=== PATIENT | male | born 1975 | race Caucasian/White ===

== ENCOUNTER 2017-02-09 09:12 | Day surgery (SDC) | payer OTHER ==
[2017-02-05 15:34] VITALS: BMI 28.4
[~2017-02-09 09:12] MED LIST: LIDOCAINE 1% 20 ML VIAL (10MG/ML) FOR IV START INTRADERMA PRN
[2017-02-09 10:18] VITALS: RESP 18; TEMP 98
[2017-02-09 10:28] LABS: Glucose,Whole Blood 96 mg/dL (75-99)
[2017-02-09] MEDS: LACTATED RINGERS 1,000 ML IV SCH ×2 (10:28→10:52)
[2017-02-09] MEDS ORDERED: LIDOCAINE 1% INJ 10MG/ML (20 ML MDV) ONE (10:57)
[2017-02-09] MEDS ORDERED: GLYCOPYRROLATE 0.2 MG/ML 2 ML VIAL ONE (10:57)
[2017-02-09] MEDS ORDERED: PROPOFOL 10 MG/ML 20 ML VIAL IV ONE (10:57)
--- NOTE | 2017-02-09 11:27 | P.PCN ---
Date of Procedure: 02/09/17 Procedure(s) Performed: Procedure: Total colonoscopy. Preoperative diagnosis: Screening for neoplasia, patient has history of polyps. Postoperative diagnosis: Examination within normal limits. Brief clinical history: The patient is a 41-year-old male who is referred for this evaluation for screening for neoplasia age being his risk factor. The patient apparently had a prior exam more than 10 years ago and he recalls he had polyps removed. He has no significant GI complaints, bleeding or anemia. No family history of colon cancer. Procedure: With the patient on his left lateral decubitus position and after informed consent and adequate sedation, the perianal area was inspected and it did not show any fissures or fistulas. There were no masses felt on digital rectal examination. The Olympus CFQ 160L video colonoscope was then inserted in the rectum in the usual fashion and advanced to the cecum. The mucosa appeared healthy. No polyps or tumors were seen or any obvious diverticular disease or other pathology. The patient tolerated the procedure well. Plan: The patient was reassured. He will follow up with you as planned and I recommended repeat exam in 5 years.
[2017-02-09 11:46] VITALS: BP 119/74; PULSE 57
== END 2017-02-09 12:24 | disposition home or self-care (01) ==
LOC: ORWHC2ENDO 09:12
DX: Z12.11 Encounter for screening for malignant neoplasm of colon (principal); Z86.010 Personal history of colon polyps; Z91.018 Allergy to other foods
CPT/HCPCS: J2001; J2704; G0105

== ENCOUNTER → 2017-10-01 | Outpatient (CLI) | payer OTHER ==
--- NOTE | 2017-10-01 14:56 | XR ---
EXAMINATION TYPE: XR chest 2V DATE OF EXAM: 10/01/2017 COMPARISON: NONE TECHNIQUE: PA and lateral views submitted. HISTORY: Lymph node enlargement FINDINGS: The lungs are clear and there is no pneumothorax, pleural effusion, or focal pneumonia. No overt fa ilure. IMPRESSION: 1. No acute process.
== END | disposition home or self-care (01) ==
LOC: RADXRMAIN 14:35
PROVIDERS: ATTEND Physician Assistant
DX: R59.0 Localized enlarged lymph nodes (principal)
CPT/HCPCS: 71020

== ENCOUNTER → 2020-08-24 | Outpatient (CLI) | payer OTHER | END | disposition home or self-care (01) | LOC: LABWHC1 15:32 | PROVIDERS: ATTEND Nurse Practitioner | DX: Z20.828 Contact with and (suspected) exposure to other viral communicable diseases (principal) | CPT/HCPCS: U0003; C9803 ==

== ENCOUNTER → 2022-01-06 | Outpatient (CLI) | payer BC ==
--- NOTE | 2022-01-06 08:07 | US ---
EXAMINATION TYPE: US abdomen limited DATE OF EXAM: 01/06/2022 COMPARISON: NONE CLINICAL HISTORY: 46-year-old male R10.11 RUQ PAIN. TECHNIQUE: Multiple sonographic images of the right upper quadrant are obtained. FINDINGS: EXAM MEASUREMENTS: Liver Length: 14.5 cm Gallbladder Wall: 0.3 cm CBD: 0.6 cm Right Kidney: 11.2 x 4.8 x 5.7 cm Pancreas: Obscured by bowel gas Liver: Mildly increased echogenicity. No focal lesion seen. Gallbladder: No stones seen. No abnormal distention, wall thickening, or surrounding fluid. Evidence for sonographic Estevez's sign: No CBD: Borderline caliber. Right Kidney: No hydronephrosis or masses seen IMPRESSION: 1. Mild hepatic steatosis. 2. Borderline caliber to the bile duct at 6 mm. This may be chronic for the patient. Correlate with a lkaline phosphatase and bilirubin levels to exclude early biliary obstruction.
== END | disposition home or self-care (01) ==
LOC: RADUSWWP 07:20
PROVIDERS: ATTEND Family Medicine
DX: K76.0 Fatty (change of) liver, not elsewhere classified (principal); R10.11 Right upper quadrant pain
CPT/HCPCS: 76705

== ENCOUNTER 2022-02-10 08:07 | Day surgery (SDC) | payer BC ==
[2022-02-06 15:26] VITALS: BMI 31.3
--- NOTE | 2022-02-10 00:28 | P.GSHP ---
History of Present Illness H&P Date: 02/10/22 CHIEF COMPLAINT: Colon screen HISTORY OF PRESENT ILLNESS: The patient is a 46-year-old male who presents for colon screen. Lower endoscopy was offered for further evaluation and management. PAST MEDICAL HISTORY: Please see list. PAST SURGICAL HISTORY: Please see list. MEDICATIONS: Please see list. ALLERGIES: Please see list. SOCIAL HISTORY: No illicit drug use FAMILY HISTORY: No reports of Crohn disease or ulcerative colitis. REVIEW OF ORGAN SYSTEMS: CONSTITUTIONAL: No reports of fevers or chills. PHYSICAL EXAM: VITAL SIGNS: Stable GENERAL: Well-developed pleasant in no acute distress. HEENT: No scleral icterus. Extraocular movements grossly intact. Moist buccal mucosa. NECK: Supple without lymphadenopathy. CHEST: Unlabored respirations. Equal bilateral excursions. CARDIOVASCULAR: Regular rate and rhythm. Distal 2+ pulses. ABDOMEN: Soft, nontender, nondistended. MUSCULOSKELETAL: No clubbing, cyanosis, or edema. ASSESSMENT: 1. Colon screen. PLAN: 1. Recommend proceeding with a lower endoscopy Past Medical History Additional Past Medical History / Comment(s): hx of colon polyps. GALLBLADDER ISSUES History of Any Multi-Drug Resistant Organisms: None Reported Additional Past Surgical History / Comment(s): colonoscopies in past Past Anesthesia/Blood Transfusion Reactions: No Reported Reaction Smoking Status: Former smoker - Past Family History Mother Family Medical History: No Reported History Medications and Allergies Home Medications Medication Instructions Recorded Confirmed Type No Known Home Medications 02/05/17 02/06/22 History Allergies Allergy/AdvReac Type Severity Reaction Status Date / Time barley Allergy Abdominal Verified 02/06/22 15:18 Pain corn syrup Allergy Abdominal Verified 02/06/22 15:18 Pain
[~2022-02-10 08:07] MED LIST changes: +LACTATED RINGERS 1,000 ML IV SCH; +LIDOCAINE 1% (10MG/ML) FOR IV START INTRADERMA PRN; -LIDOCAINE 1% 20 ML VIAL (10MG/ML) FOR IV START INTRADERMA PRN
[2022-02-10 08:40] VITALS: TEMP 97.2
[2022-02-10] MEDS ORDERED: PROPOFOL 10 MG/ML 20 ML VIAL IV ONE (09:24)
--- NOTE | 2022-02-10 09:44 | P.PCN ---
Date of Procedure: 02/10/22 Description of Procedure: PREOPERATIVE DIAGNOSIS: Personal history of colon polyps POSTOPERATIVE DIAGNOSIS: Tubular adenoma transverse colon Scattered diverticulosis Colitis, ascending colon Internal hemorrhoids, grade 2 OPERATION: Colonoscopy to the ileocecal valve and appendiceal orifice, cecum Colonoscopy with hot snare polypectomy Colonoscopy with cold forceps biopsy SURGEON: Paige Slater MD. ANESTHESIA: MAC. INDICATIONS: The patient is an 46-year-old male who presents personal history of colon polyps. Last colonoscopy 5 years. Benefits and risks were described and informed consent was obtained. DESCRIPTION OF PROCEDURE: The patient had undergone Sutab prep. The patient had been brought into the operating room and laid in the left lateral decubitus position. After adequate intravenous sedation, the rectum was examined with 2% lidocaine jelly. The prostate was unremarkable. External hemorrhoids were encountered. The rectal tone was within normal limits. No lesions were palpated in the rectal vault. An Olympus colonoscope was advanced until the cecum, ileocecal valve and ap pendiceal orifice were clearly viewed. The prep was good. Sigmoid diverticulosis was encountered. Colonic polyps were found and removed. No evidence of focal colitis was found. Retroflexion of the scope demonstrated grade 2 internal hemorrhoids without active bleeding or inflammation. The colon was desufflated. The patient had tolerated the procedure well. Withdrawal time was over 6 minutes. FINDINGS: Aronchick preparation quality scale 2 (1-5) Internal hemorrhoids, grade 2 External hemorrhoids, grade 2. No arteriovenous malformations. Sigmoid diverticulosis Focal colitis at ascending colon 2 cm with cold forceps biopsy Removal of 2 polyps: - Snare polypectomy mid transverse colon 5 mm tubulovillous adenoma polyp. RECOMMENDATIONS: Repeat colonoscopy in 3 years2024 Plan - Discharge Summary Discharge Rx Participant: No New Discharge Prescriptions: No Action No Known Home Medications Discharge Medication List No Known Home Medications 02/05/17 [History] Follow up Appointment(s)/Referral(s): Paige Slater MD [STAFF PHYSICIAN] - As Needed Patient Instructions/Handouts: Colorectal Polyps (GEN), Diverticulosis Diet (GEN), Diverticulosis (ED), Colitis (ED) Activity/Diet/Wound Care/Special Instructions: Repeat colonoscopy 3 years, 2024 Discharge Disposition: HOME SELF-CARE
[2022-02-10 09:45] VITALS: BP 121/84
[2022-02-10 10:00] VITALS: PULSE 70; RESP 17
== END 2022-02-10 10:21 | disposition home or self-care (01) ==
LOC: ORWHC2ENDO 08:07
PROVIDERS: ATTEND Surgery Plastic and Reconstructive Surgery
DX: K57.90 Diverticulosis of intestine, part unspecified, without perforation or abscess without bleeding (principal); D12.3 Benign neoplasm of transverse colon; K64.8 Other hemorrhoids; K52.9 Noninfective gastroenteritis and colitis, unspecified; Z86.010 Personal history of colon polyps; Z87.891 Personal history of nicotine dependence
CPT/HCPCS: 45380; 45385; 88305; J2704

== ENCOUNTER → 2022-07-01 | Outpatient (CLI) | payer BC ==
--- NOTE | 2022-07-01 10:40 | NM ---
EXAMINATION TYPE: NM hepatobiliary w CCK DATE OF EXAM: 07/01/2022 COMPARISON: 01/06/2022 ultrasound HISTORY: Right upper quadrant pain TECHNIQUE: After the intravenous administration of 5.2 mCi Tc 99m Mebrofenin hepatobiliary scintigrap hy is performed. Immediate images post injection. FINDINGS: There is satisfactory initial accumulation of tracer by the liver. The gallbladder is visualized wit hin 6 minutes. The small bowel activity is noted within 12 minutes. At one hour CCK was administere d, patient was injected with 1.86 mcg of Kinevac, and gallbladder ejection fraction is calculated at 82 %, at the upper limit of the normal range. Therefore there is no scintigraphic evidence of cystic or common bile duct obstruction to suggest acute cholecystitis or gallbladder dyskinesia. IMPRESSION: Exam is within normal limits.
== END | disposition home or self-care (01) ==
LOC: RADNMMAIN 06:47
PROVIDERS: ATTEND Family Medicine
DX: R10.11 Right upper quadrant pain (principal)
CPT/HCPCS: 78227; A9537; J2805

== ENCOUNTER → 2022-10-06 | Outpatient (CLI) | payer BC ==
--- NOTE | 2022-10-06 14:41 | XR ---
EXAMINATION TYPE: XR chest 2V DATE OF EXAM: 10/06/2022 2:16 PM COMPARISON: Chest radiographs from 10/01/2017 TECHNIQUE: XR chest 2V Frontal and lateral views of the chest. CLINICAL INDICATION:Male, 47 years old with history of J18.9 Pneumonia; FINDINGS: Lungs/Pleura: There is no evidence of pleural effusion, focal consolidation, or pneumothorax. Pulmonary vascularity: Unremarkable. Heart/mediastinum: Cardiomediastinal silhouette is unremarkable. Musculoskeletal: No acute osseous pathology. IMPRESSION: No acute cardiopulmonary disease/process.
== END | disposition home or self-care (01) ==
LOC: RADXRMAIN 13:57
PROVIDERS: ATTEND Family Medicine
DX: J18.9 Pneumonia, unspecified organism (principal)
CPT/HCPCS: 71046

== ENCOUNTER → 2024-09-13 | Outpatient (CLI) | payer BC ==
--- NOTE | 2024-09-13 09:22 | XR ---
EXAMINATION TYPE: XR chest 2V DATE OF EXAM: 09/13/2024 9:07 AM COMPARISON: Chest radiographs from 10/06/2022 CLINICAL INDICATION: Male, 49 years old with history of J44.9 COPD Z77.090 CONTACT WITH AND (SUSPECTE D) EX; [facility] TECHNIQUE: XR chest 2V Frontal and lateral views of the chest. FINDINGS: Lungs/Pleura: There is no evidence of pleural effusion, focal consolidation, or pneumothorax. Pulmonary vascularity: Unremarkable. Heart/mediastinum: Cardiomediastinal silhouette is unremarkable. Musculoskeletal: No acute osseous pathology. IMPRESSION: No acute cardiopulmonary disease/process. [facility], , 09/13/2024 9:20 AM
--- NOTE | 2024-09-13 12:23 | CTL ---
EXAMINATION TYPE: CT Low Dose Lung DATE OF EXAM: 09/13/2024 9:52 AM COMPARISON: None. CLINICAL INDICATION: Male, 49 years old with history of J44.9 COPD Z77.090 CONTACT WITH AND (SUSPECTE D) EX, personal hx of nicotine dependence 1ppd X 27 years, former smoker, History of tobacco use. TECHNIQUE: Low dose computed tomography scan was performed through the chest at 1 mm thick sections a nd reconstructed images in multiple planes at 1 mm and [address] DLP: 131.1 mGycm, CT CTDI: 3.4 mGy, Automated exposure control for dose reduction was used. CT DIAGNOSTIC QUALITY: Satisfactory FINDINGS: The heart is normal size without pericardial effusion. Ectatic ascending aorta 3.7 cm. Conventional arch vessel branching anatomy. No thoracic lymphadenopathy by CT size criteria. 4 mm lateral right lower lobe pulmonary nodule, axial image 191 on baseline. 3 mm lateral inferior lingular pulmonary nodule, axial image 199. Some strandy scarring anterior right mid lung. Mild emphysematous change. No consolidation or pleural effusion. There is a small hiatal hernia. Otherwise, visualized upper abdomen shows [id number] stool. Bones: No osseous destructive process. IMPRESSION: 1. LungRADS 2, benign. A couple small pulmonary nodules measuring up to 4 mm on baseline screening. 2. COPD with mild emphysema. 3. Small hiatal hernia. CT LUNG RAD AND CT CHEST RECOMMENDATION: Lung-Rad 2 Benign Appearance or Behavior: Continue annual sc reening with LDCT in 12 months. S Modifier (other clinically significant findings): None [facility], , 09/13/2024 12:21 PM
== END ==
LOC: CPPFTMAIN 07:26
PROVIDERS: ATTEND Family Medicine
DX: J44.9 Chronic obstructive pulmonary disease, unspecified (principal); Z77.090 Contact with and (suspected) exposure to asbestos; Z87.891 Personal history of nicotine dependence; Z91.018 Allergy to other foods
CPT/HCPCS: 71046; 71271; 94060; 94726; 94729